=== PATIENT | female | born 1960 | race Two or more races ===

== ENCOUNTER 2018-10-02 19:26 | Emergency (ER) | payer MEDICAID ==
[~2018-10-02] VITALS: Ht 152.4 cm; Wt 72.2 kg
[~2018-10-02 19:26] MED LIST: NONE PER PT
[2018-10-02 19:31] VITALS: BP 148/75
--- NOTE | 2018-10-02 19:52 | NUR ---
report taken from task [facility].
--- NOTE | 2018-10-02 20:53 | NUR ---
pt presents to ED with c/o cough and headache x 4 days. pt is a&ox4, resps even and unlabored. neuro intact, no drift, bilateral direct customer service representative equal, all extremity strength 5/5. pt given dc instructions and script. pt educated regarding tessalon perles and salv[facility] rx. pt amb to dc desk with steady gait, accompanied by son. azael at dc.
== END 2018-10-02 20:49 | disposition home or self-care (01) ==
LOC: ED 20:17
DX: J06.9 Acute upper respiratory infection, unspecified (principal); B97.89 Other viral agents as the cause of diseases classified elsewhere
CPT/HCPCS: 71046; 93005; 99283

== ENCOUNTER 2018-12-12 18:52 | Emergency (ER) | payer MEDICAID ==
[~2018-12-12] VITALS: Ht 152.4 cm; Wt 72.3 kg
--- NOTE | 2018-12-12 19:24 | NUR ---
HAS SORE THROAT, H/A AND DIZZINESS THAT STARTED LAST NIGHT. MONITORS APLIED, SIDERAILS UP X2, CALL LIGHT WITHIN REACH
[2018-12-12] MEDS ORDERED: DEXAMETHASONE 4 MG/ML, 5ML ONE (19:27)
[2018-12-12] MEDS ORDERED: IBUPROFEN 600 MG TABLET ONE (19:28)
[2018-12-12] MEDS ORDERED: AMOXICILLIN 500 MG CAPSULE ONE (19:28)
[2018-12-12] MEDS ORDERED: AMOXICILLIN 500 MG CAPSULE PO ONE (19:30)
[2018-12-12] MEDS ORDERED: DEXAMETHASONE 4 MG TABLET PO ONE (19:30)
[2018-12-12] MEDS ORDERED: IBUPROFEN 600 MG TABLET PO ONE (19:30)
[2018-12-12] MEDS ORDERED: DEXAMETHASONE 4 MG TABLET ONE (19:45)
--- NOTE | 2018-12-12 19:46 | NUR ---
pt medicated per mar
--- NOTE | 2018-12-12 20:21 | NUR ---
PT RESTING CALMLY, MONITORS IN PLACE, CALL LIGHT WITHIN REACH. CHART UP FOR RECHECK
[2018-12-12] MEDS ORDERED: ACETAMINOPHEN 500 MG TABLET ONE (20:51)
[2018-12-12 20:57] LABS: BASOPHILS # (AUTO) 0.04 x10^3/uL (0-0.1); BASOPHILS % (AUTO) 0 % (0-1); EOSINOPHILS % (AUTO) 0 % (1-7); LYMPHOCYTES % (AUTO) 12 % (22-44); MD NO; MEAN CORPUSCULAR HEMOGLOBIN 29.1 pg (27.0-34.8); MEAN CORPUSCULAR HGB CONC 33.1 g/dL (32.4-35.8); MEAN CORPUSCULAR VOLUME 87.8 fL (80-100); MEAN PLATELET VOLUME 8.9 fL (7.4-10.4); MONOCYTES # (AUTO) 0.61 x10^3/uL (0.2-0.8); MONOCYTES % (AUTO) 5 % (2-9); NEUTROPHILS # (AUTO) 9.69 x10^3/uL (1.8-6.8); NEUTROPHILS % (AUTO) 83 % (42-75); PLATELET COUNT 243 x10^3/uL (130-400); RED BLOOD COUNT 4.68 x10^6/uL (3.82-5.3); RED CELL DISTRIBUTION WIDTH 14.6 % (9.6-15.2)
[2018-12-12] MEDS ORDERED: ACETAMINOPHEN 500 MG TABLET PO ONE (21:00)
[2018-12-12] MEDS ORDERED: SODIUM CHLORIDE 0.9% 1,000ML IVBOLUS ONE (21:00)
[2018-12-12] MEDS ORDERED: SODIUM CHLORIDE FLUSH 10ML SYR IVF ONE (21:00)
[2018-12-12 21:03] VITALS: BP 133/80
--- NOTE | 2018-12-12 21:03 | NUR ---
IV SITE STARTED , IV FLUIDS INFUSING. PT RESTING CALMLY, MONITORS IN PLACE, CALL LIGHT WITHIN REACH. AWAITING LAB RESULTS
[2018-12-12 21:11] LABS: ALBUMIN 3.5 g/dL (3.4-5.0); ANION GAP 7 mmol/L (5-15); CALCIUM 8.2 mg/dL (8.5-10.1); CHLORIDE 106 mmol/L (98-107); CREATININE 0.73 mg/dL (0.55-1.02)
--- NOTE | 2018-12-12 21:43 | NUR ---
pt up to rr with standby assist, steady gait noted, denies dizziness
== END 2018-12-12 21:58 | disposition home or self-care (01) ==
LOC: ED 19:12
DX: J02.0 Streptococcal pharyngitis (principal); E86.0 Dehydration; R51 Headache
CPT/HCPCS: 36415; 80048; 82040; 85025; 93005; 96360; 99284; J7030

== ENCOUNTER 2019-07-24 18:57 | Emergency (ER) | payer MEDICAID ==
[~2019-07-24] VITALS: Ht 152.4 cm; Wt 72.0 kg
[2019-07-24 19:45] VITALS: BP 147/78
[2019-07-24] MEDS ORDERED: IBUPROFEN 200 MG TABLET ONE (20:27)
[2019-07-24] MEDS ORDERED: IBUPROFEN 200 MG TABLET PO ONE (20:30)
== END 2019-07-24 21:50 | disposition home or self-care (01) ==
LOC: ED 21:40
DX: S53.431A Radial collateral ligament sprain of right elbow, initial encounter (principal); M77.8 Other enthesopathies, not elsewhere classified; W01.0XXA Fall on same level from slipping, tripping and stumbling without subsequent striking against object, initial encounter; Y93.89 Activity, other specified; Y92.009 Unspecified place in unspecified non-institutional (private) residence as the place of occurrence of the external cause; Y99.8 Other external cause status
CPT/HCPCS: 29125; 99283

== ENCOUNTER 2021-03-25 23:55 | Emergency (ER) | payer MEDICAID ==
[~2021-03-25] VITALS: Ht 152.4 cm; Wt 74.3 kg
[2021-03-26 01:23] LABS: BASOPHILS % (AUTO) 1 % (0-1); EOSINOPHILS % (AUTO) 4 % (1-7); LYMPHOCYTES % (AUTO) 43 % (22-44); MEAN CORPUSCULAR HEMOGLOBIN 29.5 pg (27.0-34.8); MEAN CORPUSCULAR HGB CONC 33.5 g/dL (32.4-35.8); MEAN PLATELET VOLUME 8.9 fL (7.4-10.4); MONOCYTES % (AUTO) 7 % (2-9); NEUTROPHILS % (AUTO) 46 % (42-75); PLATELET COUNT 295 x10^3/uL (130-400); RED BLOOD COUNT 4.94 x10^6/uL (3.82-5.3); RED CELL DISTRIBUTION WIDTH 13.7 % (9.6-15.2)
[2021-03-26 01:32] LABS: ALBUMIN 3.4 g/dL (3.4-5.0); ANION GAP 7 mmol/L (5-15); CALCIUM 8.7 mg/dL (8.5-10.1); CHLORIDE 108 mmol/L (98-107); CREATININE 0.59 mg/dL (0.55-1.02)
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
[2021-03-26 01:36] LABS: TROPONIN I < 0.015 ng/mL (0.000-0.045)
[2021-03-26 02:10] VITALS: BP 137/87
--- NOTE | 2021-03-26 02:29 | NUR ---
Patient given discharge instructions and they have confirmed that they understand the instructions. Patient ambulatory with steady gait. NAD, all questions answered appropriately, denies additional needs at this time. No personal belongings left in room after discharge.
== END 2021-03-26 02:30 | disposition home or self-care (01) ==
LOC: ED 23:59
DX: R07.89 Other chest pain (principal); F41.1 Generalized anxiety disorder
CPT/HCPCS: 36415; 71045; 80048; 82040; 84484; 85025; 93005; 99285